=== PATIENT | female | born 1980 | race Caucasian/White ===

== ENCOUNTER 2017-06-18 11:53 | Emergency (ER) | payer MEDICARE, MEDICAID ==
[~2017-06-18] VITALS: Ht 170.2 cm; Wt 59.0 kg
[2017-06-18 12:08] VITALS: BP 102/69
[2017-06-18] MEDS ORDERED: KETOROLAC 60 MG/2 ML VIAL IM ONE (15:35)
[2017-06-18] MEDS ORDERED: SUMAtriptan 6 MG/0.5 ML VIAL SUBQ ONE (15:35)
[2017-06-18] MEDS ORDERED: oxyCODONE/APAP 5/325 MG 1 TAB TAB PO ONE (15:35)
[2017-06-18 16:59] VITALS: BP 102/69
== END 2017-06-18 16:20 | disposition home or self-care (01) ==
LOC: MED 11:53
DX: G44.009 Cluster headache syndrome, unspecified, not intractable (principal); Z86.73 Personal history of transient ischemic attack (TIA), and cerebral infarction without residual deficits
CPT/HCPCS: 96372; 99284; J1885; J3030